=== PATIENT | male | born 1980 | race Caucasian/White ===

== ENCOUNTER 2017-02-19 22:16 | Observation (INO) | payer BC ==
[~2017-02-19] VITALS: Ht 182.9 cm; Wt 82.0 kg
[~2017-02-19 22:16] MED LIST: PERC5TAB12 PO; TAMS0.4C67 PO; ZOFR4TAB3 SL
[2017-02-19 22:18] VITALS: BP 130/71; PULSE 89; RESP 16; TEMP 99.8; O2SAT 98
[2017-02-20] VITALS (7 sets, daily range): BP systolic 98–128; BP diastolic 56–74; PULSE 63–82; RESP 15–24; TEMP 97.4–101.1; O2SAT 96–100
--- NOTE | 2017-02-20 00:15 | RADRPT ---
EXAM DATE/TIME: 02/19/2017 23:59 [facility] COMPARISON: No previous studies available for comparison. INDICATIONS : Cephalgia and vomiting for 3 days. RADIATION DOSE: 56.35 CTDIvol (mGy) MEDICAL HISTORY : None SURGICAL HISTORY : None. ENCOUNTER: Initial ACUITY: 3 days PAIN SCALE: 8/10 LOCATION: cranial TECHNIQUE: Multiple contiguous axial images were obtained of the head. Using automated exposure control and adj ustment of the mA and/or kV according to patient size, radiation dose was kept as low as reasonably a chievable to obtain optimal diagnostic quality images. DICOM format image data is available electro nically for review and comparison. FINDINGS: CEREBRUM: The ventricles are normal for age. No evidence of midline shift, mass lesion, hemorrhage or acute in farction. No extra-axial fluid collections are seen. POSTERIOR FOSSA: The cerebellum and brainstem are intact. The 4th ventricle is midline. The cerebellopontine angle i s unremarkable. EXTRACRANIAL: The visualized portion of the orbits is intact. SKULL: The calvaria is intact. No evidence of skull fracture. CONCLUSION: Normal examination. The foramen magnum is somewhat widened with some soft tissue in the cerebella to nsils raising the possibility of a Chiari one malformation. Nothing acute. Ho Lugo MD on February 20, 2017 at 0:14 Board Certified Radiologist. This report was verified electronically.
[2017-02-20 00:38] LABS: AUTOMATED NEUTROPHIL # 6.3 TH/MM3 (1.8-7.7); BASOPHIL % 0.1 % (0.0-2.0); HEMATOCRIT 44.9 % (39.0-51.0); HEMO FLAGS DIFF FINAL; LYMPH % 6.4 % (9.0-44.0); LYMPHOCYTE # 0.5 TH/MM3 (1.0-4.8); MEAN CELL VOLUME 93.1 FL (80.0-100.0); MEAN CORPUSCULAR HEMOGLOBIN 31.9 PG (27.0-34.0); MEAN CORPUSCULAR HGB CONC 34.3 % (32.0-36.0); MONO % 12.4 % (0.0-8.0); NEUT % 81.1 % (16.0-70.0); PLATELET COUNT 208 TH/MM3 (150-450); RED BLOOD COUNT 4.83 MIL/MM3 (4.50-5.90); RED CELL DISTRIBUTION WIDTH 13.8 % (11.6-17.2); WHITE BLOOD COUNT 7.7 TH/MM3 (4.0-11.0)
[2017-02-20] MEDS ORDERED: PROCHLORPERAZINE INJ 10 MG/2 ML VIAL IV PUSH ONE (00:45)
[2017-02-20] MEDS ORDERED: SODIUM CHLOR 0.9% 1000 ML INJ 1,000 ML IV ONE (00:45)
[2017-02-20 00:59] LABS: BICARBONATE 27.7 MEQ/L (21.0-32.0); POTASSIUM 4.2 MEQ/L (3.5-5.1)
--- NOTE | 2017-02-20 01:25 | PD ---
HPI Chief Complaint: Headache Time Seen by Provider: 00:02 Travel History International Travel<30 days: No Contact w/Intl Traveler<30days: No Traveled to known affect area: No History of Present Illness HPI This is a 36-year-old male who presents today with 5 day history of headache. The patient states that 5 days ago, he started having some pain in the back of his neck rating down to his scapular area. He states it was muscular skeletal in origin. He states that 2 days after that, he started experiencing headache. He reports it as bifrontal and left temporal. He denies any neck stiffness. He denies any neck pain at this time. He denies any fevers, chills. The patient does state that his is 38 weeks and his son was recently been home with a viral illness. He states that he's been taking care of him while at home. Patient has no previous history of headaches like this. There is no back pain. There is no numbness or tingling of his extremities. There is no other complaints time my examination. PFSH Past Medical History Kidney Stones: Yes Immunizations Current: No (DENIES) Tetanus Vaccination: Unknown Past Surgical History Surgical History: No Previous Surgery Social History Alcohol Use: Yes (rare) Tobacco Use: Yes (1-2 cigarettes/day) Substance Use: Yes (MARIJUANA RARE) Allergies-Medications (Allergen,Severity, Reaction): Coded Allergies: No Known Allergies (Unverified Allergy, Unknown, 02/20/17) Reported Meds & Prescriptions Reported Meds & Active Scripts Active Review of Systems Except as stated in HPI: all other systems reviewed are Neg General / Constitutional: No: Fever, Chills Eyes: No: Blurred Vision, Photophobia HENT: Positive: Headaches (by frontal and left temporal), No: Vertigo, Lightheadedness, Neck Pain (none now but 5 days ago he did have right sided neck muscular discomfort.) Cardiovascular: No: Chest Pain or Discomfort, Palpitations Respiratory: No: Cough, Shortness of Breath Gastrointestinal: No: Nausea, Vomiting, Abdominal Pain Genitourinary: No: Frequency Musculoskeletal: No: Weakness, Pain Skin: No Rash, No Lesions Neurologic: Positive: Headache, No: Weakness, Dizziness, Paresthesia, Sensory Disturbance Physical Exam Narrative GENERAL: Well-developed well-nourished male in no acute rest her distress. SKIN: Focused skin assessment warm/dry. HEAD: Atraumatic. Normocephalic. EYES: Pupils equal and round. No scleral icterus. No injection or drainage. ENT: No nasal bleeding or discharge. Mucous membranes pink and moist. NECK: Trachea midline. Supple. CARDIOVASCULAR: Regular rate and rhythm. No murmur appreciated. RESPIRATORY: No accessory muscle use. Clear to auscultation. Breath sounds equal bilaterally. GASTROINTESTINAL: Abdomen soft, non-tender, nondistended. MUSCULOSKELETAL: No obvious deformities. No clubbing. No cyanosis. No edema. NEUROLOGICAL: Awake and alert. No obvious cranial nerve deficits. Motor grossly within normal limits. Normal speech. PSYCHIATRIC: Appropriate mood and affect; insight and judgment normal. Data Data Last Documented VS Vital Signs Date Time Temp Pulse Resp B/P (MAP) Pulse Ox O2 Delivery O2 Flow Rate FiO2 02/20/17 00:25 63 15 126/60 (82) 100 Room Air 02/19/17 22:[address] Brain W/O Iv Contrast(Rout) (02/19/17 ) Complete Blood Count With Diff (02/19/17 22:30) Basic Metabolic Panel (Bmp) (02/19/17 22:30) Westergren Sedimentation Rate (02/19/17 22:30) Sodium Chlor 0.9% 1000 Ml Inj (Ns 1000 M (02/20/17 00:45) Prochlorperazine Inj (Compazine Inj) (02/20/17 00:45) Place In Observation (02/20/17 ) Code Status (02/20/17 04:07) Vital Signs (Adult) Q4H (02/20/17 04:07) Activity Oob Ad Brandie (02/20/17 04:07) Diet Heart Healthy (02/20/17 Breakfast) Sodium Chloride 0.9% Flush (Ns Flush) (02/20/17 04:15) Sodium Chloride 0.9% Flush (Ns Flush) (02/20/17 09:00) Acetaminophen (Tylenol) (02/20/17 04:15) Ondansetron Inj (Zofran Inj) (02/20/17 04:15) Case Management Consult (02/20/17 04:07) Naloxone Inj (Narcan Inj) (02/20/17 04:15) Docusate Sodium-Senna (Radha-Colace) (02/20/17 09:00) Magnesium Hydroxide Liq (Milk Of Magnesi (02/20/17 04:15) Sennosides (Senokot) (02/20/17 04:15) Bisacodyl Supp (Dulcolax Supp) (02/20/17 04:15) Lactulose Liq (Lactulose Liq) (02/20/17 04:15) Consult Neurology (02/20/17 ) Mri Brain W&W/O Contrast (02/20/17 ) Admit Order (Ed Use Only) (02/20/17 04:06) Labs Laboratory Tests Test 02/20/17 00:20 White Blood Count 7.7 TH/MM3 Red Blood Count 4.83 MIL/MM3 Hemoglobin 15.4 GM/DL Hematocrit 44.9 % Mean Corpuscular Volume 93.1 FL Mean Corpuscular Hemoglobin 31.9 PG Mean Corpuscular Hemoglobin Concent 34.3 % Red Cell Distribution Width 13.8 % Platelet Count 208 TH/MM3 Mean Platelet Volume 8.0 FL Neutrophils (%) (Auto) 81.1 % Lymphocytes (%) (Auto) 6.4 % Monocytes (%) (Auto) 12.4 % Eosinophils (%) (Auto) 0.0 % Basophils (%) (Auto) 0.1 % Neutrophils # (Auto) 6.3 TH/MM3 Lymphocytes # (Auto) 0.5 TH/MM3 Monocytes # (Auto) 1.0 TH/MM3 Eosinophils # (Auto) 0.0 TH/MM3 Basophils # (Auto) 0.0 TH/MM3 CBC Comment DIFF FINAL Differential Comment Erythrocyte Sedimentation Rate 15 mm/hr Blood Urea Nitrogen 14 MG/DL Creatinine 1.00 MG/DL Random Glucose 97 MG/DL Calcium Level 9.0 MG/DL Sodium Level 133 MEQ/L Potassium Level 4.2 MEQ/L Chloride Level 99 MEQ/L Carbon Dioxide Level 27.7 MEQ/L Anion Gap 6 MEQ/L Estimat Glomerular Filtration Rate 84 ML/MIN [facility] Medical Decision Making Medical Screen Exam Complete: Yes Emergency Medical Condition: Yes Interpretation(s) Last [address] 02/19/17 0000 Signed Impressions: Service Date/Time: Sunday, February 19, 2017 23:59 - CONCLUSION: Normal examination. The foramen magnum is somewhat widened with some soft tissue in the cerebella tonsils raising the possibility of a Chiari one malformation. Nothing acute. Ho Lugo MD Differential Diagnosis Tension headache versus dehydration versus viral illness Narrative Course 36-year-old male presents with complaints of headache. Patient's had symptoms 5 days. He reports a headache 3 days. He states it started off as neck pain and progressed to the bifrontal and left side of his head. The patient's been given Compazine and a liter of IV fluid. After the fluid infused, he was ambulated. He still reports a headache in the frontal area. CT scan of the brain shows a Chiari malformation. Patient was unaware of any abnormal findings in his brain. Given this and the fact he still has a headache, recommendation is that he be brought in under observation. He'll be given further IV fluid and have a MRI of his brain to rule out any type of early herniation. Call out to the [facility] hospitalist service. Diagnosis Primary Impression: Cephalgia Additional Impression: Chiari malformation type I Admitting Information Admitting Physician Requests: Observation Simeon Mcgee MD Feb 20, 2017 01:25
[2017-02-20] MEDS ORDERED: MAGNESIUM HYDROXIDE SUSP 30 ML CUP PO PRN (04:15)
[2017-02-20] MEDS ORDERED: BISACODYL 10 MG SUPP RECTAL PRN (04:15)
[2017-02-20] MEDS ORDERED: SENNOSIDES 8.6 MG TAB PO PRN (04:15)
[2017-02-20] MEDS ORDERED: LACTULOSE SYRUP 20 GM/30 ML CUP PO PRN (04:15)
[2017-02-20] MEDS ORDERED: SODIUM CHLORIDE 0.9% FLUSH 10 ML FLUSH IV FLUSH PRN (04:15)
[2017-02-20] MEDS ORDERED: NALOXONE HCL 0.4 MG/ML AMP IV PUSH PRN (04:15)
[2017-02-20] MEDS ORDERED: ONDANSETRON HCL 4 MG/2 ML VIAL IVP PRN (04:15)
[2017-02-20] MEDS: ACETAMINOPHEN 325 MG TAB PO PRN ×2 (05:36→17:46)
--- NOTE | 2017-02-20 08:25 | PD.CONS ---
History of Present Illness Service Neurology Consult Requested By er Reason for Consult john Primary Care Physician No Primary Care Physician History of Present Illness 36-year-old male who presents today with 5 day history of headache. throbbing, neck pain. feels tired, weak but no focal weakness, no sensory symptoms. no vision changes. son has been sick at home. no change in pain with valsalva. continuous. no photo /phonophobia. ct brain showing possible arnold chiari malformation +fever overnight. 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 normally healthy. no previous headaches. PFSH Past Medical History Kidney Stones: Yes Immunizations Current: No (DENIES) Tetanus Vaccination: Unknown Past Surgical History Surgical History: No Previous Surgery Social History Alcohol Use: Yes (rare) Tobacco Use: Yes (1-2 cigarettes/day) Substance Use: Yes (MARIJUANA RARE) Allergies-Medications (Allergen,Severity, Reaction): Coded Allergies: No Known Allergies (Unverified Allergy, Unknown, 02/20/17) Reported Meds & Prescriptions Reported Meds & Active Scripts Active Review of Systems Except as stated in HPI: all other systems reviewed are Neg Review of Systems All other ROS: ROS reviewed as documented in chart Past Family Social History Allergies: Coded Allergies: No Known Allergies (Unverified Allergy, Unknown, 02/20/17) Active Ordered Medications Current Medications Medications (Trade) Dose Ordered Sig/Khadra Route Start Time Stop Time Status Last Admin (NS Flush) 2 ml UNSCH PRN IV FLUSH 02/20/17 04:15 (NS Flush) 2 ml BID IV FLUSH 02/20/17 09:00 (Tylenol) 650 mg Q4H PRN PO 02/20/17 04:15 02/20/17 05:36 (Zofran Inj) 4 mg Q6H PRN IVP 02/20/17 04:15 (Narcan Inj) 0.4 mg UNSCH PRN IV PUSH 02/20/17 04:15 (Radha-Colace) 1 tab BID PO 02/20/17 09:00 (Milk Of Magnesia Liq) 30 ml Q12H PRN PO 02/20/17 04:15 (Senokot) 17.2 mg Q12H PRN PO 02/20/17 04:15 (Dulcolax Supp) 10 mg DAILY PRN RECTAL 02/20/17 04:15 (Lactulose Liq) 30 ml DAILY PRN PO 02/20/17 04:15 Exam I&O / VS Vital Signs Date Time Temp Pulse Resp B/P (MAP) Pulse Ox O2 Delivery O2 Flow Rate FiO2 02/20/17 06:35 98.9 02/20/17 05:46 02/20/17 05:34 101.1 82 18 119/64 (82) 97 02/20/17 00:25 63 15 126/60 (82) 100 Room Air 02/20/17 00:04 (90) 02/19/17 22:18 99.8 89 16 130/71 (90) 98 Room Air General: Alert and Oriented, No acute distress Eye: EOMI Respiratory: Non-labored respirations Musculoskeletal: ROM Neurologic: Alert, Oriented, Normal sensory, Normal motor, No focal defects, CN II-XII intact, Normal DTR's Psychiatric: Cooperative, Appropriate mood & affect, Normal judgement Exam Comments ox 3, in mild distress from pain, articulate, mild neck stifffness with head flexion, able to turn head side to side , vff, ou 4-3mm, face sym, vff, no drift , 5/5 all 4 ext Review/Management Diagnosis/Plan: (1) Meningeal irritation ICD Codes: R29.1 - Meningismus Plan: possible meningitis aseptic recs check csf f/u blood cx's pain control (2) Chiari malformation type I ICD Codes: G93.5 - Compression of brain Status: Acute Plan: questionable significance f/u mri brain (3) Fever ICD Codes: R50.9 - Fever, unspecified Status: Acute Bala Gonzales MD Feb 20, 2017 08:25
[2017-02-20] MEDS: DOCUSATE SODIUM 50 MG/SENNA 8.6 MG TAB PO SCH ×2 (08:48→21:00)
[2017-02-20] MEDS: SODIUM CHLORIDE 0.9% FLUSH 10 ML FLUSH IV FLUSH SCH ×2 (08:48→21:00)
[2017-02-20] MEDS: SODIUM CHLOR 0.9% 1000 ML INJ 1,000 ML IV SCH ×2 (10:17→23:05)
--- NOTE | 2017-02-20 12:52 | RADRPT ---
EXAM DATE/TIME: 02/20/2017 12:19 [facility] COMPARISON: No previous studies available for comparison. INDICATIONS : Cephalgia. MEDICAL HISTORY : None. SURGICAL HISTORY : None. ENCOUNTER: Subsequent ACUITY: 4-6 days PAIN SCORE: 3/10 LOCATION: head. Please note a normal MRA of the brain does not entirely exclude the possibility of a small aneurysm, nor the possibility of distal intracranial vessel disease. TECHNIQUE: 3D time of flight MRA was performed. Source images, multiplanar STS MIP, and 3D volume MIP reconstru ctions were reviewed. FINDINGS: There is excellent visualization of the major intracranial arteries out to the second-order branch ve ssels. There is no evidence for aneurysm, vessel truncation or stenosis, and no evidence for vascula r malformation. CONCLUSION: Negative exam. Intracranial vessels are all patent without aneurysmal disease. Norberto Langford MD on February 20, 2017 at 12:48 Board Certified Radiologist. This report was verified electronically.
[2017-02-20] MEDS ORDERED: GADODIAMIDE PF 287 MG/ML 10 ML VIAL (for RAD MRI) IV PUSH ONE (12:57)
--- NOTE | 2017-02-20 14:25 | HHI.HP ---
HPI Service [facility] Primary Care Physician No Primary Care Physician Admission Diagnosis cephalgia, chiari 1 malformation Diagnoses: (1) Cephalgia Diagnosis: Principal (2) Fever Diagnosis: Principal (3) Chiari malformation type I Diagnosis: Secondary Travel History International Travel<30 Days: No Contact w/Intl Traveler <30 Da: No Traveled to Known Affected Are: No History of Present Illness Written by Lizzy Adler, acting as scribe for Dr. Wood on 02/20/17 at 14:25. This note was transcribed by scribgerber Adler. I, Dr. Pedro Pablo Wood personally performed the history, physical exam, and medical decision making; and confirmed the accuracy of the information in the transcribed note. Authenticated by Dr. Pedro Pablo Wood on 02/20/17 at 14:28. 36 year old male who presented to the ED on 02/19 with complaints of headache X5 days he repots that 6 days prior was having neck pains that radiated down his scapular area. He felt these were muscle spasms he was having and his massaged area with relief he also took OTC Advil. However, his headaches with neck pains have continued despite massaging and analgesics. He does not repot a history of headaches in the past or any other past medical history. 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 He does admit to being under some stress recently as he has a 38 week old who is being induced tomorrow. He also repots that his child at home recently was diagnosed with Roseola. He denies any photophobia or phonophobia with headache, no blurry vision or diplopia. He denies any weakness, numbness, fever, chills, nausea, vomiting, or diarrhea. Describes headache as bilateral and "all over" worse when moving around and turning head, better when he is sitting with and he tilts his head back, pain will come and go. 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 SKIN: No rashes, ecchymoses or lesions. Cool and dry. HEAD: Atraumatic. Normocephalic. No temporal or scalp tenderness. EYES: Pupils equal round and reactive. Extraocular motions intact. No scleral icterus. No injection or drainage. ENT: Nose without bleeding, purulent drainage or septal hematoma. Throat without erythema, tonsillar hypertrophy or exudate. Uvula midline. Airway patent. NECK: Trachea midline. No JVD or lymphadenopathy. Supple, nontender, tenderness elicited with palpation of posterior neck and trapeze area. CARDIOVASCULAR: Regular rate and rhythm without murmurs, gallops, or rubs. RESPIRATORY: Clear to auscultation. Breath sounds equal bilaterally. No wheezes , rales, or rhonchi. GASTROINTESTINAL: Abdomen soft, non-tender, nondistended. No hepato-splenomegaly , or palpable masses. No guarding. MUSCULOSKELETAL: Extremities without clubbing, cyanosis, or edema. No joint tenderness, effusion, or edema noted. NEUROLOGICAL: Awake and alert. Cranial nerves II through XII intact. Motor and sensory grossly within normal limits. Five out of 5 muscle strength in all muscle groups. Normal speech. Laboratory Laboratory Tests Test 02/20/17 00:20 White Blood Count 7.7 Red Blood Count 4.83 Hemoglobin 15.4 Hematocrit 44.9 Mean Corpuscular Volume 93.1 Mean Corpuscular Hemoglobin 31.9 Mean Corpuscular Hemoglobin Concent 34.3 Red Cell Distribution Width 13.8 Platelet Count 208 Mean Platelet Volume 8.0 Neutrophils (%) (Auto) 81.1 Lymphocytes (%) (Auto) 6.4 Monocytes (%) (Auto) 12.4 Eosinophils (%) (Auto) 0.0 Basophils (%) (Auto) 0.1 Neutrophils # (Auto) 6.3 Lymphocytes # (Auto) 0.5 Monocytes # (Auto) 1.0 Eosinophils # (Auto) 0.0 Basophils # (Auto) 0.0 CBC Comment DIFF FINAL Differential Comment Erythrocyte Sedimentation Rate 15 Blood Urea Nitrogen 14 Creatinine 1.00 Random Glucose 97 Calcium Level 9.0 Sodium Level 133 Potassium Level 4.2 Chloride Level 99 Carbon Dioxide Level 27.7 Anion Gap 6 Estimat Glomerular Filtration Rate 84 Date/Time Source Procedure Growth Status 02/20/17 13:57 Blood Peripheral Aerobic Blood Culture Pending Received 02/20/17 13:57 Blood Peripheral Anaerobic Blood Culture Pending Received Result Diagram: 02/20/17 0020 02/20/17 0020 Imaging Last Impressions Head/Brain Mag Res Venography 02/20/17 0000 Signed Impressions: Service Date/Time: Monday, February 20, 2017 12:19 - CONCLUSION: Normal exam. Ivan Maharaj Jr., MD Head Magnetic Resonance Angiography 02/20/17 0000 Signed Impressions: Service Date/Time: Monday, February 20, 2017 12:19 - CONCLUSION: Negative exam. Intracranial vessels are all patent without aneurysmal disease. Norberto Langford MD Brain MRI 02/20/17 0000 Signed Impressions: Service Date/Time: Monday, February 20, 2017 12:19 - CONCLUSION: 1. No acute intracranial abnormality. 2. No Chiari malformation. 3. Chronic left maxillary sinus disease. Ivan Maharaj Jr., MD Head CT 02/19/17 0000 Signed Impressions: Service Date/Time: Sunday, February 19, 2017 23:59 - CONCLUSION: Normal examination. The foramen magnum is somewhat widened with some soft tissue in the cerebella tonsils raising the possibility of a Chiari one malformation. Nothing acute. Ho Lugo MD Caprini VTE Risk Assessment Caprini VTE Risk Assessment: No/Low Risk (score <= 1) Caprini Risk Assessment Model Point Value = 1 Point Value = 2 Point Value = 3 Point Value = 5 Age 41-60 Minor surgery BMI > 25 kg/m2 Swollen legs Varicose veins or History of unexplained or recurrent spontaneous Oral contraceptives or hormone replacement Sepsis (< 1 month) Serious lung disease, including pneumonia (< 1 month) Abnormal pulmonary function Acute myocardial infarction Congestive heart failure (< 1 month) History of inflammatory bowel disease Medical patient at bed rest Age 61-74 Arthroscopic surgery Major open surgery (> 45 min) Laparoscopic surgery (> 45 min) Malignancy Confined to bed (> 72 hours) Immobilizing plaster cast Central venous access Age >= 75 History of VTE Family history of VTE Factor V Leiden Prothrombin [id number] Lupus anticoagulant Anticardiolipin antibodies Elevated serum homocysteine Heparin-induced thrombocytopenia Other congenital or acquired thrombophilia Stroke (< 1 month) Elective arthroplasty Hip, pelvis, or leg fracture Acute spinal cord injury (< 1 month) Prophylaxis Regimen Total Risk Factor Score Risk Level Prophylaxis Regimen 0-1 Low Early ambulation 2 Moderate Order ONE of the following: *Sequential Compression Device (SCD) *Heparin 5000 units SQ BID 3-4 Higher Order ONE of the following medications: *Heparin 5000 units SQ TID *Enoxaparin/Lovenox 40 mg SQ daily (WT < 150 kg, CrCl > 30 mL/min) *Enoxaparin/Lovenox 30 mg SQ daily (WT < 150 kg, CrCl > 10-29 mL/min) *Enoxaparin/Lovenox 30 mg SQ BID (WT < 150 kg, CrCl > 30 mL/min) AND/OR *Sequential Compression Device (SCD) 5 or more Highest Order ONE of the following medications: *Heparin 5000 units SQ TID (Preferred with Epidurals) *Enoxaparin/Lovenox 40 mg SQ daily (WT < 150 kg, CrCl > 30 mL/min) *Enoxaparin/Lovenox 30 mg SQ daily (WT < 150 kg, CrCl > 10-29 mL/min) *Enoxaparin/Lovenox 30 mg SQ BID (WT < 150 kg, CrCl > 30 mL/min) AND *Sequential Compression Device (SCD) Assessment and Plan Problem List: (1) Cephalgia ICD Code: R51 - Headache Status: Acute (2) Chiari malformation type I ICD Code: G93.5 - Compression of brain Status: Acute (3) Fever ICD Code: R50.9 - Fever, unspecified Status: Acute Assessment and Plan 36 year old male who presented to the ED on 02/19 with complaints of headache X5 days he repots that 6 days prior was having neck pains that radiated down his scapular area. No repots of prior history of headaches or any other past medical history. Cephalgia vs meningeal irritation possible viral/bacterial - No previous history of headaches - Head CT reviewed by myself showed foramen magnum somewhat widened with soft tissue in the cerebellar tonsils raising possibility of a Chiari 1 malformation, no acute findings. - Head/Brain venography reviewed by myself was normal. - Head MRA reviewed by myself showing all intracranial vessels patent without aneurysmal disease. - Brain MRI reviewed by myself showing no acute abnormality, no Chiari malformation, chronic left maxillary sinus disease. - Neurology consulted suspecting aseptic meningitis recommended LP, follow BC , and pain control. - Pain control Fioricet as needed. 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 VET prophylaxis - Early ambulation Code Status Full Code Problem Qualifiers (1) Cephalgia: Lizzy Adler Feb 20, 2017 14:25 Pedro Pablo Wood MD Feb 20, 2017 14:28
--- NOTE | 2017-02-20 14:34 | RADRPT ---
EXAM DATE/TIME: 02/20/2017 12:19 [facility] COMPARISON: CT BRAIN W/O CONTRAST, February 19, 2017, 23:59. INDICATIONS : Cephalgia. CONTRAST: 20 cc Omniscan (gadodiamide) IV MEDICAL HISTORY : None. SURGICAL HISTORY : None. ENCOUNTER: Subsequent ACUITY: 4-6 days PAIN SCORE: 3/10 LOCATION: head. TECHNIQUE: Multiplanar, multisequence MRI of the brain was performed both prior to and following the administrat ion of paramagnetic contrast. FINDINGS: CEREBRUM: The ventricles are normal for age. No evidence of midline shift, mass lesion, hemorrhage or acute in farction. No extraaxial fluid collections are seen. The pituitary gland and suprasellar cistern are normal in configuration. WHITE MATTER: No significant signal abnormalities are seen in the white matter. POSTERIOR FOSSA: The cerebellum and brainstem are intact. The 4th ventricle is midline. The cerebellopontine angle is unremarkable. The cerebellar tonsils are normal in position. DIFFUSION IMAGING: No focal areas of restricted diffusion are seen. No evidence of acute infarction. EXTRACRANIAL: The visualized portions of the orbits are unremarkable. Mucosal thickening is seen involving the left maxillary sinus. No air-fluid levels. Remaining paranasal sinuses and mastoid air cells are clear. POST-CONTRAST: No abnormal areas of parenchymal or dural enhancement. No evidence of blood-brain barrier breakdown. CONCLUSION: 1. No acute intracranial abnormality. 2. No Chiari malformation. 3. Chronic left maxillary sinus disease. Ivan Maharaj Jr., MD on February 20, 2017 at 14:28 Board Certified Radiologist. This report was verified electronically.
--- NOTE | 2017-02-20 14:36 | RADRPT ---
EXAM DATE/TIME: 02/20/2017 12:19 COMPARISON: No previous studies available for comparison. INDICATIONS : Cephalgia. CONTRAST: 20 cc Omniscan (gadodiamide) IV MEDICAL HISTORY : None. SURGICAL HISTORY : None. ENCOUNTER: Subsequent ACUITY: 4-6 days PAIN SCORE: 3/10 LOCATION: head. FINDINGS: The major venous structures show normal signal. No filling defects observed. CONCLUSION: Normal exam. Ivan Maharaj Jr., MD on February 20, 2017 at 14:32 Board Certified Radiologist. This report was verified electronically.
--- NOTE | 2017-02-20 16:59 | PD.RAD ---
Post Procedure Progress Note Pre Procedure Diagnosis: (1) Meningeal irritation Post Procedure Diagnosis: (1) Meningeal irritation Procedure Date: Feb 20, 2017 Supervising Radiologist: Jacobo Lin Estimated blood loss: none Anesthesia: Local Plan of Activity Patient Condition: Fair Additional Comments: PT post LP single puncture at L4/L5 19cc of clear csf obtained. Pt tolerated the procedure well See PACS Report for procedural detail/treatment Jacobo Lin MD Feb 20, 2017 16:59
--- NOTE | 2017-02-20 17:29 | RADRPT ---
EXAM DATE/TIME: 02/20/2017 17:47 [facility] COMPARISON: MRI BRAIN W & W/O CONTRAST, February 20, 2017, 12:19. INDICATIONS : Patient with a history of headaches. MEDICAL HISTORY : Kidney stones SURGICAL HISTORY : None ENCOUNTER: Initial ACUITY: 4 -6 days PAIN SCORE: 10/10 LOCATION: Headache LUMBAR PUNCTURE TIME: 1648 hours FLUORO TIME: 0.4 minutes IMAGE SERIES: 1 ACCESS LEVEL: L3-4 FLUID: 19 cc of clear CSF was collected and sent to the laboratory for analysis. PROCEDURE : 1. Fluoroscopic guided lumbar puncture. The risks, benefits and alternatives to the procedure were explained and verbal and written consent w as obtained. The site was prepped in sterile fashion. Full sterile technique was used, including ca p, mask, sterile gloves and gown and a large sterile sheet. Hand hygiene and 2% chlorhexidine and/or betadine/alcohol prep was utilized per protocol for cutaneous antisepsis. The skin and subcutaneous tissues were infiltrated with local anesthetic solution. With fluoroscopic guidance the lumbar thecal sac was punctured at the level above. The fluid describ ed above was removed without difficulty. The patient tolerated the procedure well and there were no complications. CONCLUSION: Uncomplicated fluoroscopically guided lumbar puncture. Jacobo Lin MD on February 20, 2017 at 17:27 Board Certified Radiologist. This report was verified electronically.
[2017-02-20 19:03] LABS: GROSS BLOOD TUBE #1 0 (0); GROSS BLOOD TUBE #2 0 (0); GROSS BLOOD TUBE #3 0 (0); GROSS BLOOD TUBE #4 0 (0); SUPERNATE COLOR TUBE #1 CLEAR (CLEAR); SUPERNATE COLOR TUBE #2 CLEAR (CLEAR); SUPERNATE COLOR TUBE #3 CLEAR (CLEAR); SUPERNATE COLOR TUBE #4 CLEAR (CLEAR); VOLUME TUBE # 2 4.5 ML; VOLUME TUBE # 3 4.5 ML; VOLUME TUBE # 4 4.2 ML; WBC TUBE #4 79 /MM3 (0-10)
[2017-02-20 19:04] LABS: CSF LYMPHOCYTES 37 %; CSF MONOCYTES 11 %; CSF NEUTROPHILS 52 %
[2017-02-20] MEDS: ACETAMIN 325 MG/BUTALBITAL 50 MG/CAFFEINE 40 MG TAB PO PRN (21:13)
[2017-02-20 23:56] LABS: APTT (PATIENT) 29.7 SEC (24.3-30.1); PROTHROMBIN TIME - PATIENT 11.5 SEC (9.8-11.6)
[2017-02-21 00:23] VITALS: BP 107/62; PULSE 50; RESP 18; TEMP 98.8; O2SAT 96
[2017-02-21 03:19] VITALS: BP 108/70; PULSE 80; RESP 18; TEMP 99.6; O2SAT 96
[2017-02-21] MEDS: ACETAMIN 325 MG/BUTALBITAL 50 MG/CAFFEINE 40 MG TAB PO PRN (06:25)
[2017-02-21 07:10] VITALS: BP 116/60; PULSE 53; RESP 16; TEMP 98.7; O2SAT 98
--- NOTE | 2017-02-21 08:54 | HHI.PR ---
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 - Compression of brain Status: Acute Plan: questionable significance f/u mri brain (3) Fever ICD Codes: R50.9 - Fever, unspecified Status: Acute Subjective Subjective Comments No acute events reported No headache No chest pain No dyspnea Active Medications Current Medications Medications (Trade) Dose Ordered Sig/Khadra Route Start Time Stop Time Status Last Admin (NS Flush) 2 ml UNSCH PRN IV FLUSH 02/20/17 04:15 (NS Flush) 2 ml BID IV FLUSH 02/20/17 09:00 02/20/17 21:00 (Tylenol) 650 mg Q4H PRN PO 02/20/17 04:15 02/20/17 17:46 (Zofran Inj) 4 mg Q6H PRN IVP 02/20/17 04:15 02/20/17 17:45 (Narcan Inj) 0.4 mg UNSCH PRN IV PUSH 02/20/17 04:15 (Radha-Colace) 1 tab BID PO 02/20/17 09:00 (Milk Of Magnesia Liq) 30 ml Q12H PRN PO 02/20/17 04:15 (Senokot) 17.2 mg Q12H PRN PO 02/20/17 04:15 (Dulcolax Supp) 10 mg DAILY PRN RECTAL 02/20/17 04:15 (Lactulose Liq) 30 ml DAILY PRN PO 02/20/17 04:15 (Fioricet 325-50-40) 1 tab Q8H PRN PO 02/20/17 09:45 02/21/17 06:25 Sodium Chloride 1,000 ml @ 75 mls/hr [id number] IV 02/20/17 09:45 02/20/17 10:17 Allergies Allergies Coded Allergies No Known Allergies (Unverified Allergy, Unknown, 02/20/17) Review of Systems All other ROS: ROS reviewed as documented in chart Exam I&O / VS Vital Signs Date Time Temp Pulse Resp B/P (MAP) Pulse Ox O2 Delivery O2 Flow Rate FiO2 02/21/17 07:10 98.7 53 16 116/60 (78) 98 02/21/17 03:19 99.6 80 18 108/70 (83) 96 02/21/17 00:23 98.8 50 18 107/62 (77) 96 02/20/17 22:24 14 02/20/17 19:31 99.0 63 18 98/56 (70) 97 02/20/17 15:58 97.8 71 22 128/74 (92) 97 02/20/17 11:39 97.4 79 22 121/70 (87) 98 General: Alert and Oriented, No acute distress Eye: EOMI Respiratory: Non-labored respirations Musculoskeletal: ROM Neurologic: Alert, Oriented, Normal sensory, Normal motor, No focal defects, CN II-XII intact, Normal DTR's Psychiatric: Cooperative, Appropriate mood & affect, Normal judgement Exam Comments ox 3, in mild distress from pain, articulate, able to turn head side to side , vff, ou 4-3mm, face sym, vff, no drift, 5/5 all 4 ext Objective Micro and Labs Laboratory Tests Test 02/20/17 16:48 02/20/17 20:43 CSF Volume (Tube 1) 5.0 CSF Supernatant Color (tube 1) CLEAR CSF Gross Blood (Tube 1) 0 CSF Volume (Tube 2) 4.5 CSF Supernatant Color (tube 2) CLEAR CSF Gross Blood (Tube 2) 0 CSF Volume (Tube 3) 4.5 CSF Supernatant Color (tube 3) CLEAR CSF Gross Blood (Tube 3) 0 CSF Volume (Tube 4) 4.2 CSF Supernatant Color (tube 4) CLEAR CSF Gross Blood (Tube 4) 0 CSF WBC (Tube 4) 79 CSF RBC (Tube 4) 20 CSF Neutrophils 52 CSF Lymphocytes 37 CSF Monocytes 11 CSF Glucose 56 CSF Lactate Dehydrogenase 30 CSF Total Protein 60.7 Prothrombin Time 11.5 Prothromb Time International Ratio 1.0 Activated Partial Thromboplast Time 29.7 Date/Time Source Procedure Growth Status 02/20/17 20:43 Blood Peripheral Aerobic Blood Culture Pending Received 02/20/17 20:43 Blood Peripheral Anaerobic Blood Culture Pending Received 02/20/17 16:48 Cerebral Spinal Fluid Lumbar Puncture Gram Stain - Final Resulted 02/20/17 16:48 Cerebral Spinal Fluid Lumbar Puncture CSF Culture Pending Resulted Bala Gonzales MD Feb 21, 2017 08:54
[2017-02-21] MEDS ORDERED: Acet-Butal-Caff 325-50-40 Mg PO (10:15)
[2017-02-21] MEDS ORDERED: FLUT50SP NASAL (10:15)
[2017-02-21] MEDS ORDERED: FLUTICASONE PROPIONATE 50 MCG/ACT 16 GM NASAL SPRAY NASAL SCH (10:15)
--- NOTE | 2017-02-21 10:16 | PD.AMA ---
Against Medical Advice Note AMA Statement Patient Brett Bustos has decided to leave the hospital against medical advice. This patient has the capacity to refuse care and understands the risks of leaving, including permanent disability and/or , and has had an opportunity to ask questions about his condition. The patient has been informed that he may return for care at any time, and follow up has been arranged/ advised. Pedro Pablo Wood MD Feb 21, 2017 10:16
--- NOTE | 2017-02-21 10:16 | HHI.PR ---
Subjective Remarks Follow-up meningitis suspect. Reports the headache is in temporary improved with Fioricet. No more fever. He is signing out AGAINST MEDICAL ADVICE because his is in labor. Also reports of PND. Discussed with RN Objective Vitals Vital Signs Date Time Temp Pulse Resp B/P (MAP) Pulse Ox O2 Delivery O2 Flow Rate FiO2 02/21/17 07:10 98.7 53 16 116/60 (78) 98 02/21/17 03:19 99.6 80 18 108/70 (83) 96 02/21/17 00:23 98.8 50 18 107/62 (77) 96 02/20/17 22:24 14 02/20/17 19:31 99.0 63 18 98/56 (70) 97 02/20/17 15:58 97.8 71 22 128/74 (92) 97 02/20/17 11:39 97.4 79 22 121/70 (87) 98 I/O 02/20/17 02/20/17 02/20/17 02/21/17 02/21/17 02/21/17 07:00 15:00 23:00 07:00 15:00 23:00 Intake Total 1000 ml Balance 1000 ml Intake IV Total 1000 ml # Voids 3 2 Result Diagram: 02/20/17 0020 02/20/17 0020 Imaging Last Impressions Lumbar Puncture Fluoroscopy 02/20/17 0000 Signed Impressions: Service Date/Time: Monday, February 20, 2017 17:47 - CONCLUSION: Uncomplicated fluoroscopically guided lumbar puncture. Jacobo Lin MD Head/Brain Mag Res Venography 02/20/17 0000 Signed Impressions: Service Date/Time: Monday, February 20, 2017 12:19 - CONCLUSION: Normal exam. Ivan Maharaj Jr., MD Head Magnetic Resonance Angiography 02/20/17 0000 Signed Impressions: Service Date/Time: Monday, February 20, 2017 12:19 - CONCLUSION: Negative exam. Intracranial vessels are all patent without aneurysmal disease. Norberto Langford MD Brain MRI 02/20/17 0000 Signed Impressions: Service Date/Time: Monday, February 20, 2017 12:19 - CONCLUSION: 1. No acute intracranial abnormality. 2. No Chiari malformation. 3. Chronic left maxillary sinus disease. Ivan Maharaj Jr., MD Head CT 02/19/17 0000 Signed Impressions: Service Date/Time: Sunday, February 19, 2017 23:59 - CONCLUSION: Normal examination. The foramen magnum is somewhat widened with some soft tissue in the cerebella tonsils raising the possibility of a Chiari one malformation. Nothing acute. Ho Lugo MD Objective Remarks GENERAL: Well-developed, well-nourished in no distress SKIN: Warm and dry. NECK: Trachea midline. No JVD. CARDIOVASCULAR: Regular rate and rhythm. RESPIRATORY: No accessory muscle use. Clear to auscultation. Breath sounds equal bilaterally. GASTROINTESTINAL: Abdomen soft, non-tender, nondistended. MUSCULOSKELETAL: Extremities without clubbing, cyanosis, or edema. No obvious deformities. NEUROLOGICAL: Awake and alert. No obvious cranial nerve deficits. Motor grossly within normal limits. Five out of 5 muscle strength in the arms and legs. Normal speech. PSYCHIATRIC: Appropriate mood and affect; insight and judgment normal. Procedures Lumbar puncture A/P Problem List: (1) Cephalgia ICD Code: R51 - Headache Status: Acute (2) Chiari malformation type I ICD Code: G93.5 - Compression of brain Status: Acute (3) Fever ICD Code: R50.9 - Fever, unspecified Status: Acute Assessment and Plan 36 year old male who presented to the ED on 02/19 with complaints of headache X5 days he repots that 6 days prior was having neck pains that radiated down his scapular area. No repots of prior history of headaches or any other past medical history. Cephalgia vs meningeal irritation possible viral/bacterial status post LP. Meningitis suspect. Consulted ID. - No previous history of headaches - Head CT reviewed by myself showed foramen magnum somewhat widened with soft tissue in the cerebellar tonsils raising possibility of a Chiari 1 malformation, no acute findings. - Head/Brain venography reviewed by myself was normal. - Head MRA reviewed by myself showing all intracranial vessels patent without aneurysmal disease. - Brain MRI reviewed by myself showing no acute abnormality, no Chiari malformation, chronic left maxillary sinus disease. - Neurology consulted suspecting aseptic meningitis recommended LP, follow BC , and pain control. - Pain control Fioricet as needed. 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 VET prophylaxis - Early ambulation Patient sign out AGAINST MEDICAL ADVICE Discharge Planning Discharge patient to home Condition on discharge: Guarded Regular Diet as tolerated Ad Brandie activity no driving Rx written: Fioricet and Flonase Follow-up with primary care physician in one week Problem Qualifiers (1) Cephalgia: Pedro Pablo Wood MD Feb 21, 2017 10:16
[2017-02-21] MEDS ORDERED: BUTA1CAP PO (10:18)
[2017-02-22 09:40] LABS: HSV 1,PCR Negative (Negative)
[2017-02-22 21:10] LABS: ENTEROVIRUS PCR RESULT Positive (Negative); ENTEROVIRUS PCR SPEC SOURCE CSF
[2017-02-23 17:29] LABS: CSF CRYPTOCOCCUS AG CONF ND (NOT DETECTD)
[2017-02-23 17:51] LABS: VDRL CSF NON-REACTIVE (NON-REACTVE)
[2017-02-24 03:50] LABS: HAEMOPHILUS FLU AG TYPE B Not Detected (Not Detected); N MENINGITIDIS GRP B/ECOLI K1 Not Detected (Not Detected); N MENINGITIDIS GRP C/W135 Not Detected (Not Detected); N.MENINGITIDIS GRP A/Y Not Detected (Not Detected); STREPTOCOCCUS PNEUMONIAE Not Detected (Not Detected)
== END 2017-02-21 10:39 | disposition left against medical advice (07) ==
LOC: NEPE 22:16 → NEDA 02-20 04:11 → NEPFCDU 02-20 05:22
PROVIDERS: ADMIT Internal Medicine; ATTEND Internal Medicine
DX: R51 Headache (principal); G93.5 Compression of brain; R50.9 Fever, unspecified; M62.838 Other muscle spasm; R11.10 Vomiting, unspecified; M54.9 Dorsalgia, unspecified; M54.2 Cervicalgia; S06.9X0A Unspecified intracranial injury without loss of consciousness, initial encounter; R29.1 Meningismus; F17.210 Nicotine dependence, cigarettes, uncomplicated; X58.XXXA Exposure to other specified factors, initial encounter
CPT/HCPCS: 62270; 70450; 70544; 70546; 70553; 77003; 80048; 82945; 83615; 84157; 85025; 85610; 85652; 85730; 86403; 86592; 87040; 87070; 87205; 87498; 87529; 89051; 96361; 96374; 96375; 99285; A9579; G0378; J0780; J2405; J7030

== ENCOUNTER 2017-02-23 13:22 | Emergency (ER) | payer BC ==
[~2017-02-23] VITALS: Ht 182.9 cm; Wt 80.0 kg
[~2017-02-23 13:22] MED LIST changes: +BUTA1CAP PO; +FLUT50SP NASAL; -PERC5TAB12 PO; -TAMS0.4C67 PO; -ZOFR4TAB3 SL
[2017-02-23 13:25] VITALS: BP 143/89; PULSE 70; RESP 16; TEMP 98.1; O2SAT 99
[2017-02-23] MEDS ORDERED: CYCLOBENZAPRINE HCL 10 MG TAB PO ONE (15:00)
[2017-02-23] MEDS ORDERED: KETOROLAC TROMETHAMINE 30 MG/ML (IVP) VIAL IV PUSH ONE (15:00)
[2017-02-23] MEDS ORDERED: SODIUM CHLOR 0.9% 1000 ML INJ 1,000 ML IV ONE (15:15)
[2017-02-23 15:44] LABS: AUTOMATED NEUTROPHIL # 4.8 TH/MM3 (1.8-7.7); BASOPHIL % 0.3 % (0.0-2.0); EOSINOPHIL % 0.2 % (0.0-4.0); HEMATOCRIT 46.1 % (39.0-51.0); HEMO FLAGS DIFF FINAL; LYMPH % 17.3 % (9.0-44.0); LYMPHOCYTE # 1.1 TH/MM3 (1.0-4.8); MEAN CELL VOLUME 93.5 FL (80.0-100.0); MEAN CORPUSCULAR HEMOGLOBIN 31.9 PG (27.0-34.0); MEAN CORPUSCULAR HGB CONC 34.1 % (32.0-36.0); MONO % 10.1 % (0.0-8.0); NEUT % 72.1 % (16.0-70.0); PLATELET COUNT 271 TH/MM3 (150-450); RED BLOOD COUNT 4.93 MIL/MM3 (4.50-5.90); RED CELL DISTRIBUTION WIDTH 13.3 % (11.6-17.2); WHITE BLOOD COUNT 6.6 TH/MM3 (4.0-11.0)
[2017-02-23 15:58] LABS: ALKALINE PHOSPHATASE 77 U/L (45-117); TOTAL BILIRUBIN ADULT 0.5 MG/DL (0.2-1.0)
[2017-02-23 15:59] LABS: ALT (GPT) 32 U/L (12-78); ANION GAP 7 MEQ/L (5-15); AST (GOT) 19 U/L (15-37); BICARBONATE 28.5 MEQ/L (21.0-32.0); BLOOD UREA NITROGEN 15 MG/DL (7-18); CHLORIDE 101 MEQ/L (98-107); GLOMERULAR FILTRATION RATE 99 ML/MIN (>89); SODIUM (NA) 136 MEQ/L (136-145)
[2017-02-23 16:00] LABS: POTASSIUM 3.7 MEQ/L (3.5-5.1)
[2017-02-23] MEDS ORDERED: CYCL10TA PO (17:15)
--- NOTE | 2017-02-23 17:15 | PD ---
HPI Chief Complaint: Pain: Acute or Chronic Time Seen by Provider: 14:44 Travel History International Travel<30 days: No Contact w/Intl Traveler<30days: No Traveled to known affect area: No History of Present Illness HPI Patient is a 36-year-old male who comes in complaining of neck pain. He was here 3 days ago for headache and was worked up for meningitis. He signed out AMA because his was in labor. The CSF was positive for enterovirus. He says his headache is been controlled, but he has neck pain. He has not had any fevers since his admission. He denies nausea or vomiting. He says if he lies flat pulses had still he has no pain. He has been taking Fioricet for his headaches. He does have a 3-day-old infant home. Says the pain is on the sides of his neck. He has not had any pain in his lower back near the lumbar puncture site. He has not noticed any leakage of fluids. PFSH Past Medical History Blood Disorders: No Cancer: No Cardiovascular Problems: No Chemotherapy: No Endocrine: No Genitourinary: Yes (KIDNEY STONES ) Headaches: Yes Immune Disorder: No Kidney Stones: Yes Musculoskeletal: No Neurologic: No Psychiatric: No Reproductive: No Respiratory: No Immunizations Current: No (DENIES) Radiation Therapy: No Past Surgical History Surgical History: No Previous Surgery Social History Alcohol Use: Yes (rare) Tobacco Use: Yes (1-2 cigarettes/day) Substance Use: No Allergies-Medications (Allergen,Severity, Reaction): Coded Allergies: No Known Allergies (Unverified Allergy, Unknown, 02/20/17) Reported Meds & Prescriptions Reported Meds & Active Scripts Active Fioricet (Zbswjejshr-Idjpvyehjzuse-Adpebrda) 50-300-40 Mg Cap 1 Cap PO Q6HR PRN Fluticasone Nasal [place] 50 Mcg/Act Naspr 1 [place] NASAL BID 50 mcg/spray Review of Systems Except as stated in HPI: all other systems reviewed are Neg General / Constitutional: No: Fever, Chills Eyes: No: Blurred Vision HENT: No: Headaches Cardiovascular: No: Chest Pain or Discomfort Respiratory: No: Shortness of Breath Gastrointestinal: No: Nausea, Vomiting Musculoskeletal: Positive: Pain Skin: No Rash, No Change in Pigmentation Neurologic: No: Weakness, Dizziness Physical Exam Narrative GENERAL: Awake and alert, in no acute distress. SKIN: Focused skin assessment warm/dry. No signs of infection. HEAD: Atraumatic. Normocephalic. EYES: Pupils equal and round. No scleral icterus. Extraocular movements intact. ENT: Mucous membranes pink and moist. NECK: Trachea midline. No JVD. No cervical spine tenderness. CARDIOVASCULAR: Regular rate and rhythm. No murmur appreciated. RESPIRATORY: No accessory muscle use. Clear to auscultation. Breath sounds equal bilaterally. GASTROINTESTINAL: Abdomen soft, non-tender, nondistended. MUSCULOSKELETAL: No obvious deformities. No clubbing. No cyanosis. No tenderness to the thoracic or lumbar spine. Lumbar puncture site has no surrounding erythema, there is no leakage of fluids. NEUROLOGICAL: Awake and alert. No obvious cranial nerve deficits. Motor grossly within normal limits. Normal speech. PSYCHIATRIC: Appropriate mood and affect; insight and judgment normal. Data Data Last Documented VS Vital Signs Date Time Temp Pulse Resp B/P (MAP) Pulse Ox O2 Delivery O2 Flow Rate FiO2 02/23/17 13:25 98.1 70 16 143/89 (107) 99 Orders Orders Iv Access Insert/Monitor (02/23/17 14:57) Complete Blood Count With Diff (02/23/17 14:57) Comprehensive Metabolic Panel (02/23/17 14:57) Ketorolac Inj (Toradol Inj) (02/23/17 15:00) Cyclobenzaprine (Flexeril) (02/23/17 15:00) Sodium Chlor 0.9% 1000 Ml Inj (Ns 1000 M (02/23/17 15:15) Labs Laboratory Tests Test 02/23/17 15:18 White Blood Count 6.6 TH/MM3 Red Blood Count 4.93 MIL/MM3 Hemoglobin 15.7 GM/DL Hematocrit 46.1 % Mean Corpuscular Volume 93.5 FL Mean Corpuscular Hemoglobin 31.9 PG Mean Corpuscular Hemoglobin Concent 34.1 % Red Cell Distribution Width 13.3 % Platelet Count 271 TH/MM3 Mean Platelet Volume 7.6 FL Neutrophils (%) (Auto) 72.1 % Lymphocytes (%) (Auto) 17.3 % Monocytes (%) (Auto) 10.1 % Eosinophils (%) (Auto) 0.2 % Basophils (%) (Auto) 0.3 % Neutrophils # (Auto) 4.8 TH/MM3 Lymphocytes # (Auto) 1.1 TH/MM3 Monocytes # (Auto) 0.7 TH/MM3 Eosinophils # (Auto) 0.0 TH/MM3 Basophils # (Auto) 0.0 TH/MM3 CBC Comment DIFF FINAL Differential Comment Blood Urea Nitrogen 15 MG/DL Creatinine 0.87 MG/DL Random Glucose 94 MG/DL Total Protein 7.8 GM/DL Albumin 3.7 GM/DL Calcium Level 8.7 MG/DL Alkaline Phosphatase 77 U/L Aspartate Amino Transf (AST/SGOT) 19 U/L Alanine Aminotransferase (ALT/SGPT) 32 U/L Total Bilirubin 0.5 MG/DL Sodium Level 136 MEQ/L Potassium Level 3.7 MEQ/L Chloride Level 101 MEQ/L Carbon Dioxide Level 28.5 MEQ/L Anion Gap 7 MEQ/L Estimat Glomerular Filtration Rate 99 ML/MIN [facility] Medical Decision Making Medical Screen Exam Complete: Yes Emergency Medical Condition: Yes Medical Record Reviewed: Yes Differential Diagnosis Viral meningitis versus muscle strain versus tension headache Narrative Course Patient is a 36-year-old male comes in complaining of neck pain. He was diagnosed with viral meningitis 3 days ago. IV status, labs sent. Labs show no acute abnormalities. Given Toradol, fluids, Flexeril. I spoke with Dr. Leung of infectious disease. She says symptomatic treatment and he should be away from the baby for at least a week. He is informed of this. Given a prescription for Flexeril. Advised to rest and drink plenty of fluids. Advised to return to the ED as needed for any worsening symptoms. Diagnosis Primary Impression: Meningeal irritation Patient Instructions: General Instructions, Viral Meningitis (ED) Additional Instructions: Take pain medicine as needed. Drink plenty of fluids. Rest and stay away from her baby until you're feeling better, at least another 4 days. Follow-up with a primary care doctor. Return to the ED as needed for any worsening symptoms. Scripts Cyclobenzaprine (Flexeril) 10 Mg Tab 10 MG PO TID for Muscle Spasm, #15 TAB 0 Refills Prov: Machelle Abad MD 02/23/17 Disposition: 01 DISCHARGE HOME Condition: Stable Machelle Abad MD Feb 23, 2017 17:15
== END 2017-02-23 17:23 | disposition home or self-care (01) ==
LOC: NEPC 13:22
DX: A87.9 Viral meningitis, unspecified (principal); F17.210 Nicotine dependence, cigarettes, uncomplicated
CPT/HCPCS: 80053; 85025; 96361; 96374; 99284; J1885; J7030